=== PATIENT | female | born 1985 | race Caucasian/White ===

== ENCOUNTER 2017-07-28 20:33 | Emergency (ER) | payer OTHER ==
[~2017-07-28] VITALS: Ht 157.4 cm; Wt 72.6 kg
[~2017-07-28 20:33] MED LIST: BACTRIM DS 8001 TA1 PO; CLARITIN10 MG PO; FOLIC ACID0.4 MG PO; IBU800 MG PO; KENALOG0.1% TP; MEDROL DOSEPAK4 MG PO; PERIDEX 480 ML480 ML PO; PREDNICOT20 MG PO; PRENATAL1 TA1 PO; TYLENOL W/CODEI1 TA2 PO; ULTRAM50 MG PO
[2017-07-28] MEDS ORDERED: CLARITIN10 MG PO (22:53)
[2017-07-28] MEDS ORDERED: FLONASE ALLERG9.9 ML NAS (22:53)
== END 2017-07-28 22:51 | disposition home or self-care (01) ==
LOC: ED 20:33
DX: R05 Cough (principal); H92.03 Otalgia, bilateral; R06.02 Shortness of breath; R07.9 Chest pain, unspecified; Z88.1 Allergy status to other antibiotic agents

== ENCOUNTER 2019-12-24 18:49 | Emergency (ER) | payer OTHER ==
[~2019-12-24] VITALS: Ht 157.4 cm; Wt 72.6 kg
[~2019-12-24 18:49] MED LIST changes: +AUGMENTIN 875-875 MG PO; +FLONASE ALLERG9.9 ML NAS
[2019-12-24] MEDS ORDERED: IBUPROFEN600 MG PO (19:39)
[2019-12-24 19:57] LABS: BUN 17 mg/dl (7-24); CHLORIDE 107 mmol/L (98-107); CREATININE 1.01 mg/dL (0.55-1.02); POTASSIUM 3.9 mmol/L (3.5-5.1); SODIUM 140 mmol/L (136-145)
[2019-12-24 20:08] LABS: THYROID STIM HORMONE (HS) 0.973 uIU/ml (0.358-4.75)
== END 2019-12-24 20:37 | disposition home or self-care (01) ==
LOC: ED 18:49
PROVIDERS: Emergency Medicine
DX: G56.03 Carpal tunnel syndrome, bilateral upper limbs (principal); M23.92 Unspecified internal derangement of left knee; Z79.899 Other long term (current) drug therapy

== ENCOUNTER 2021-01-18 21:16 | Emergency (ER) | payer OTHER ==
[~2021-01-18 21:16] MED LIST changes: +IBUPROFEN600 MG PO
[2021-01-18] MEDS ORDERED: CLINDAMYCIN HC300 MG PO (21:46)
== END 2021-01-18 21:52 | disposition home or self-care (01) ==
LOC: ED 21:16
DX: K08.89 Other specified disorders of teeth and supporting structures (principal); R50.9 Fever, unspecified; M54.2 Cervicalgia; Z88.1 Allergy status to other antibiotic agents; Z79.2 Long term (current) use of antibiotics; Z79.899 Other long term (current) drug therapy; Z98.890 Other specified postprocedural states

== ENCOUNTER 2021-05-25 19:04 | Emergency (ER) | payer OTHER ==
[~2021-05-25] VITALS: Ht 154.9 cm; Wt 79.4 kg
[~2021-05-25 19:04] MED LIST changes: +CLINDAMYCIN HC300 MG PO
[2021-05-25] MEDS ORDERED: CLINDAMYCIN HC300 MG PO (20:36)
[2021-05-25] MEDS ORDERED: IBUPROFEN600 MG PO (20:36)
== END 2021-05-25 21:15 | disposition home or self-care (01) ==
LOC: ED 19:04
DX: K08.89 Other specified disorders of teeth and supporting structures (principal); Z88.1 Allergy status to other antibiotic agents

== ENCOUNTER 2023-03-20 19:39 | Emergency (ER) | payer OTHER ==
[~2023-03-20] VITALS: Ht 154.9 cm; Wt 86.2 kg
[2023-03-20] MEDS ORDERED: NAPROXEN250 MG PO (21:09)
== END 2023-03-20 21:22 | disposition home or self-care (01) ==
LOC: ED 19:39
DX: S93.401A Sprain of unspecified ligament of right ankle, initial encounter (principal); S93.601A Unspecified sprain of right foot, initial encounter; Z98.890 Other specified postprocedural states; Z88.1 Allergy status to other antibiotic agents; W10.8XXA Fall (on) (from) other stairs and steps, initial encounter; Y93.89 Activity, other specified; Y92.89 Other specified places as the place of occurrence of the external cause; Y99.8 Other external cause status

== ENCOUNTER 2024-01-06 10:51 | Emergency (ER) | payer OTHER ==
[~2024-01-06] VITALS: Ht 154.9 cm; Wt 84.8 kg
[~2024-01-06 10:51] MED LIST changes: +NAPROXEN250 MG PO
[2024-01-06] MEDS ORDERED: BUPROPION HYDR150 M3 PO (11:07)
[2024-01-06] MEDS ORDERED: IBUPROFEN 800 MG TAB PO ONE (11:35)
== END 2024-01-06 13:10 | disposition home or self-care (01) ==
LOC: ED 10:51
DX: M79.644 Pain in right finger(s) (principal); R60.0 Localized edema; Z88.1 Allergy status to other antibiotic agents; Z98.890 Other specified postprocedural states